=== PATIENT | female | born 1965 | race Caucasian/White ===

== ENCOUNTER 2017-08-14 11:54 | Observation (INO) | payer MEDICARE ==
[2017-08-14 12:45] LABS: Granulocyte Absolute (ANC) 6.22 (1.4-6.9); Hematocrit 43.5 % (35-47); Mean Cell Volume 88.6 fl (78-100); Mean Corpuscular Hemoglobin 28.5 pg (26-32); Mean Corpuscular Hgb Concent. 32.2 g/dl (32-36); Platelet Count 180 K/mm3 (150-450); Red Blood Count 4.91 M/mm3 (4.1-5.4); Red Cell Distribution Width 15.5 % (11.5-14.0); White Blood Count 10.3 K/mm3 (4.0-10.5)
[2017-08-14] MEDS ORDERED: Sodium Chloride 0.9% 1000 ML 1,000 ML IV SCH (12:45)
[2017-08-14 13:01] LABS: ALBUMIN 3.5 g/dL (3.5-5.0); ANION GAP 15.9 MEQ/L (5-15); BILIRUBIN,TOTAL 0.6 mg/dL (0.2-1.3); Calcium 9.7 mg/dL (8.4-10.2); Creatinine 1 1.15 mg/dL (0.52-1.04); Potassium 3.9 mmol/L (3.5-5.1)
--- NOTE | 2017-08-14 13:15 | ERPHSYRPT ---
- History of Present Illness Time Seen by Provider: 08/14/17 12:38 Source: patient, family Exam Limitations: clinical condition Patient Subjective Stated Complaint: pt brought to ed per ems with mother with reports of pt has syncapol episode at [facility]-pt mother reports that pt sat down and then passed out-states that when pt woke up it took her a few min before she was aware mother was there-states that she did not hit her head or fall-no jerking motions or incontent episode noted Triage Nursing Assessment: pt arrived to ed pale warm and dry-able to follow commands-pt stated she could not assist with transfer then sat up to take shirt and bra and put gown on-dark substance noted to hands and arms-wipes off easily- resp easy and nonlabored-pupils responsive Physician History: PATIENT WITH A HISTORY OF CRANIALPHARYNGEAL TUMOR RESECTION AGE 9 AT [facility], HISTORY OF CVA AND TIA'S X 2, HAD A SY[address]OPAL EPISODE AT [facility] TODAY, WHILE SITTING INTO CHAIR, MOTHER MAINTAINED HER AIRWAY WITH CHIN LIFT. DENIES TRAUMA OR INJURY TO FLOOR, SEIZURE ACTIVITY. Witnessed: by family Prior Episodes: single episode today Timing/Duration: today Precipitating Factors: none Context: sitting Loss of Consciousness: prolonged (minutes) Charcter of event(s): collapsed (WHILE SITTING) Allergies/Adverse Reactions: prochlorperazine edisylate [From Compazine] Allergy (Mild, Verified 08/14/17 12: 10) " cant walk" prochlorperazine maleate [From Compazine] Allergy (Mild, Verified 08/14/17 12:10 ) "can't walk" promethazine HCl [From Phenergan] Allergy (Mild, Verified 08/14/17 12:10) " can't walk" Home Medications: Aspirin 81 gm Chew [Baby Aspirin 81 mg Chew] 81 mg PO DAILY 08/14/17 [ History] Clopidogrel Bisulfate 75 mg [PLAVIX 75 MG Tablet] 75 mg PO DAILY 08/14/17 [History] Duloxetine HCl [Cymbalta] 60 mg PO BID 08/14/17 [History] Hydrocodone Bit/Acetaminophen [Hydrocodon-Acetaminophn 10-325] 1 each PO UD 06/02 [History] Levothyroxine Sodium [Synthroid] 25 mcg PO BID 08/14/17 [History] Potassium Chloride 10 Meq Tab* [Klor Con 10 MEQ] 10 meq PO DAILY 08/14/17 [ History] Prednisone 5 mg [Deltasone 5 mg] 5 mg PO DAILY 08/14/17 [History] Spironolactone 25 mg [Aldactone 25 MG] 25 mg PO DAILY 08/14/17 [History] Hx Tetanus, Diphtheria Vaccination/Date Given: No Hx Influenza Vaccination/Date Given: No Hx Pneumococcal Vaccination/Date Given: No Immunizations Up to Date: No - Past Medical History Pertinent Past Medical History: Yes Neurological History: TIA, Other ENT History: Other Cardiac History: No Pertinent History, Deep Vein Thrombosis Respiratory History: Asthma Endocrine Medical History: Adrenal Insufficiency, Hypothyroidism Musculoskeletal History: Fibromyalgia, Osteoporosis GI Medical History: GERD History: Other Psycho-Social History: Anxiety, Depression, Other Female Reproductive Disorders: No Pertinent History Other Medical History: BRAIN BLEED 02-13BRAIN TUMOR WITH SHUNT A CHILD NON MALIGNANT - cranial frengioma, hx " brain bleed" and tia x2. legally blind. - Past Surgical History Past Surgical History: Yes Neuro Surgical History: Brain Shunt, Neurological Surgery Cardiac: No Pertinent History, Vascular Surgery Respiratory: No Pertinent History Gastrointestinal: Appendectomy, Cholecystectomy Genitourinary: No Pertinent History Musculoskeletal: No Pertinent History Female Surgical History: No Pertinent History Other Surgical History: green field filter - Social History Smoking Status: Never smoker Exposure to second hand smoke: No Drug Use: none Patient Lives Alone: No Significant Family History: diabetes - Female History Hx Now: No - Review of Systems Constitutional: No Fever, No Chills Eyes: No Symptoms Ears, Nose, & Throat: No Symptoms Respiratory: No Cough, No Dyspnea Cardiac: No Chest Pain, No Edema, No Syncope Abdominal/Gastrointestinal: No Symptoms, No Abdominal Pain, No Nausea, No Vomiting, No Diarrhea Genitourinary Symptoms: No Symptoms, No Dysuria Musculoskeletal: No Back Pain, No Neck Pain Skin: No Symptoms, No Rash Neurological: Other (SYNCOPE), No Dizziness, No Focal Weakness, No Sensory Changes Psychological: No Symptoms Endocrine: No Symptoms All Other Systems: Reviewed and Negative Physical Exam - Nursing Vital Signs Nursing Vital Signs: Initial Vital Signs Temperature 98.1 F 08/14/17 12:22 Pulse Rate 94 H 08/14/17 12:22 Respiratory Rate 18 08/14/17 12:22 O2 Sat by Pulse Oximetry 96 08/14/17 12:22 Pain Scale Pain Intensity 0 - Physical Exam General Appearance: no apparent distress, alert Eye Exam: bilateral eye: PERRL, EOMI Ears, Nose, Throat Exam: normal ENT inspection, pharynx normal, moist mucous membranes Neck Exam: normal inspection, non-tender, supple, full range of motion Respiratory: normal breath sounds, lungs clear, No chest tenderness, No respiratory distress Cardiovascular: regular rate/rhythm, capillary refill <2 sec, No murmur, No pulse deficit Gastrointestinal: soft, No tenderness, No distention, No mass Back Exam: normal inspection, normal range of motion, No CVA tenderness, No vertebral tenderness Extremity Exam: normal inspection, normal range of motion, pelvis stable, No tenderness Mental Status: alert, oriented x 3, cooperative proof tester Exam: normal speech, PERRL, No facial droop Coordination/Gait: normal finger to nose Motor/Sensory: no motor deficit, no sensory deficit, no pronator drift DTR: bicep (R): 2+, bicep (L): 2+, tricep (R): 2+, tricep (L): 2+, knee (R): 2+ , knee (L): 2+, ankle (R): 2+, ankle (L): 2+ Skin Exam: normal color, warm, dry, No rash SpO2 Interpretation: normal SpO2: 97 Oxygen Delivery: Room Air - Course EKG Interpreted by Me: RATE, Sinus Rhythm, Sinus Tach, NORMAL AXIS - Radiology Exams Chest X-ray Interpretation: Discussed w/ radiologist, No Infiltrates Pelvis X-ray Interpretation: Discussed w/ radiologist, Negative, No Fracture - CT Exams Head CT Interpretation: Discussed w/radiologist, Other (NEW FINDING REMOTE APPEARING LEFT CAUDATE HEAD, AND LEFT BASAL GANGLIA, LACUNAR INFARCTS) Ordered Tests: Active Orders 24 hr Category Date Time Status Up Ad Rowena ROUTINE Activity 08/14/17 15:12 Active Clean Catch Urine Specimen STAT Care 08/14/17 12:31 Active Code Status Order ROUTINE Care 08/14/17 15:10 Active EKG-ER Only STAT Care 08/14/17 12:31 Active IV Insertion STAT Care 08/14/17 12:31 Active Neuro Checks Q4H Care 08/14/17 15:10 Active Oxygen-ED Only NASAL CANNULA 2 lpm Care 08/14/17 12:[address] in Observation ROUTINE Care 08/14/17 15:10 Active Telemetry CONTINUOUS Care 08/14/17 15:11 Active Cardiac Diet Diet 08/14/17 Dinner Active CHEST 1 VIEW (PORTABLE) Stat Exams 08/14/17 12:32 Completed HEAD WITHOUT CONTRAST [CT] Stat Exams 08/14/17 12:32 Completed MRA BRAIN WITHOUT CONTRAST [MRI] Routine Exams 08/14/17 15:10 Ordered PELVIS (1 OR 2 VIEWS) Stat Exams 08/14/17 12:37 Completed CBC W DIFF Stat Lab 08/14/17 12:22 Completed CMP Stat Lab 08/14/17 12:22 Completed MAGNESIUM Stat Lab 08/14/17 12:22 Completed Manual Differential NC Stat Lab 08/14/17 12:22 Completed UA W/RFX UR CULTURE Stat Lab 08/14/17 12:32 Ordered Oxygen NASAL CANNULA 2 lpm RT 08/14/17 15:10 Active Transfer Order Routine Transfer 08/14/17 Ordered Medication Summary Generic Name Dose Route Start Last Admin Trade Name Freq PRN Reason Stop Dose Admin Acetaminophen 650 mg 08/14/17 15:10 Tylenol 325 Mg PO 09/13/17 15:09 Q4H PRN PRN PAIN, FEVER, HEADACHE Hydrocodone Bitart/Acetaminophen 1 tab 08/15/17 10:00 [place] 10/325 Mg Tablet PO 08/20/17 09:59 DAILY DASIA Duloxetine HCl 60 mg 08/14/17 22:00 Cymbalta 30 Mg Capsule PO 09/13/17 21:59 BID DASIA Sodium Chloride 1,000 mls @ 100 mls/hr 08/14/17 12:45 08/14/17 12:57 Sodium Chloride 0.9% 1000 Ml IV 09/13/17 12:44 100 mls/hr .Q10H DASIA Administration Sodium Chloride 1,000 mls @ 50 mls/hr 08/14/17 15:15 Sodium Chloride 0.9% 1000 Ml IV 09/13/17 15:14 .Q20H DASIA Levothyroxine Sodium 25 mcg 08/15/17 10:00 Synthroid 25 Mcg PO 09/14/17 09:59 QAM [facility] Potassium Chloride 10 meq 08/15/17 10:00 Klor Con 10 Meq PO 09/14/17 09:59 DAILY DASIA Prednisone 5 mg 08/15/17 10:00 Deltasone 5 Mg PO 09/14/17 09:59 DAILY DASIA Spironolactone 25 mg 08/15/17 10:00 Aldactone 25 Mg PO 09/14/17 09:59 DAILY [facility] Lab/Rad Data: Laboratory Result [facility] 08/14/17 12:22 08/14/17 12:22 Laboratory Results 08/14/17 08/14/17 08/14/17 Range/Units 12:22 12:22 12:22 WBC 10.3 (4.0-10.5) K/mm3 RBC 4.91 (4.1-5.4) M/mm3 Hgb 14.0 (12.0-16.0) gm/dl Hct 43.5 (35-47) % MCV 88.6 (78-100) fl MCH 28.5 (26-32) pg MCHC 32.2 (32-36) g/dl RDW 15.5 H (11.5-14.0) % Plt Count 180 (150-450) K/mm3 MPV 11.0 H (6-9.5) fl Absolute Granulocytes 6.22 (1.4-6.9) Segmented Neutrophils 64 (36.0-66.0) % Band Neutrophils 1 (0.0-2.0) % Lymphocytes (Manual) 31 (24-44) % Monocytes (Manual) 2 (0.0-12.0) % Eosinophils (Manual) 1 (0.00-3.0) % Basophils (Manual) 1 (0.0-1.0) % Platelet Estimate NORMAL (NORMAL) RBC Morphology NORMAL Sodium 141 (137-145) mmol/L Potassium 3.9 (3.5-5.1) mmol/L Chloride 106 (98-107) mmol/L Carbon Dioxide 23 (22-30) mmol/L Anion Gap 15.9 H (5-15) MEQ/L BUN 20 H (7-17) mg/dL Creatinine 1.15 H (0.52-1.04) mg/dL Estimated GFR 53.3 ML/MIN Glucose 117 H (74-106) mg/dL Calcium 9.7 (8.4-10.2) mg/dL Magnesium 2.0 (1.6-2.3) mg/dL Total Bilirubin 0.60 (0.2-1.3) mg/dL AST 42 H (14-36) U/L ALT 41 H (0-35) U/L Alkaline Phosphatase 94 (38-126) U/L Serum Total Protein 7.0 (6.3-8.2) g/dL Albumin 3.5 (3.5-5.0) g/dL - Progress Discussed with : Austin (DISCUSSED WITH DR ORTEGA FOR OBSERVATION) - Departure Time of Disposition: 15:15 Departure Disposition: Observation Clinical Impression: SYNCOPE, REMOTE CVA Condition: Stable Critical Care Time: No Referrals: CASSIA PIERCE [Primary Care Provider] -
--- NOTE | 2017-08-14 13:27 | XRAY ---
Indication: Syncope. History TIA and CVA. Double contiguous axial images obtained through the head without contrast. Comparison: August 25, 2012. Stable distended 3rd and both lateral ventricles with right-sided ventricular shunt catheter in situ. Stable left basal ganglia calcifications. New remote-appearing left caudate head and left basal ganglia lacunar infarcts. No acute intracranial hemorrhage, abnormal extra-axial fluid collection, or mass effect. Fourth ventricle is midline. Again empty sella with benign chunky calcifications. Bony calvarium intact again with right temporal craniotomy. Visualized paranasal sinuses and mastoid air cells are clear. Impression: 1. New finding remote appearing left caudate head and left basal ganglia lacunar infarcts. 2. Stable distended 3rd and lateral ventricles with right ventricular shunt catheter in situ. 3. Again empty sella with benign chunky calcifications. 4. No acute intracranial abnormalities. CTDI 71.05
--- NOTE | 2017-08-14 13:29 | XRAY ---
Indication: Bilateral hip pain following fall 2 weeks ago. Comparison: None Single AP pelvis demonstrates left peritoneal shunt tubing coiled midline at the level of the pelvic inlet. No other bony, articular, or soft tissue abnormalities.
--- NOTE | 2017-08-14 13:29 | XRAY ---
Indication: Dyspnea. Comparison: August 25, 2012. Portable apical lordotic chest now markedly underinflated but remains clear again with right shunt tubing and cardiac pacer lead. Heart is not enlarged and bony thorax intact. No new/acute findings.
[2017-08-14 14:02] LABS: BAND 1 % (0.0-2.0); Basophil 1 % (0.0-1.0); Eosinophil 1 % (0.00-3.0); Lymphocytes 31 % (24-44); Monocyte 2 % (0.0-12.0); Neutrophils 64 % (36.0-66.0); Platelet Estimate NORMAL (NORMAL); Total Cells Counted 100
[2017-08-14] MEDS: Sodium Chloride 0.9% 1000 ML 1,000 ML IV SCH (16:25)
[2017-08-14] MEDS ORDERED: MEDICATION INTERVENTION PO SCH (17:30)
[2017-08-14] MEDS ORDERED: Norco 10/325 MG Tablet ONE (20:00)
[2017-08-14] MEDS: Cymbalta 30 MG Capsule PO SCH (21:42)
[2017-08-14] MEDS: Glucophage 500 MG PO SCH (21:43)
[2017-08-14] MEDS: Seroquel 25 MG PO SCH (21:43)
[2017-08-14] MEDS: PLAVIX 75 MG Tablet PO SCH (21:43)
[2017-08-14] MEDS: XANAX 1 MG PO SCH (21:44)
[2017-08-14] MEDS ORDERED: NON-FORMULARY ITEM (Quetiapine Fumarate [Seroquel] 50 MG) PO SCH (22:00)
[2017-08-15] MEDS ORDERED: Zofran 4 MG/2 ML VIAL IV PRN (08:15)
--- NOTE | 2017-08-15 08:23 | PCM.HP ---
History of Present Illness - Chief Complaint Chief Complaint: CVA. History of Present Illness: is a 51 year old female with a longstanding medical history with no local physician. 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 She had an episode yesterday where she passed out at [facility], there was no report of seizure activity. She reports she felt tired after the incident, has had no further issues since admission. Denies chest pain, shortness of breath or other complaints. Of note she has had multiple MRI's done since her 3D DESIGNER shunt has been placed per her report. She sees a neurologist but unsure of the name, staff to try and obtain records. - Review of Systems Constitutional: No Fever, No Chills Respiratory: No Cough, No Short Of Breath Cardiac: Syncope Abdominal/Gastrointestinal: No Abdominal Pain, No Nausea, No Vomiting, No Diarrhea Genitourinary Symptoms: No Dysuria Neurological: No Dizziness, No Focal Weakness, No Sensory Changes Psychological: No Symptoms All Other Systems: Reviewed and Negative Medications & Allergies Home Medications: Home Medication List Alprazolam [Xanax] 2 tab PO HS 08/14/17 [History Confirmed 08/14/17] Aspirin 81 gm Chew [Baby Aspirin 81 mg Chew] 81 mg PO DAILY 08/14/17 [ History Confirmed 08/14/17] Clopidogrel Bisulfate 75 mg [PLAVIX 75 MG Tablet] 75 mg PO HS 08/14/17 [ History Confirmed 08/14/17] Cortisone Acetate [Cortisone] 7 mg PO DAILY 08/14/17 [History Confirmed 08/14/17 ] Desmopressin Acetate 0.2 mg PO DAILY 08/14/17 [History Confirmed 08/14/17] Duloxetine HCl [Cymbalta] 2 cap PO BID 08/14/17 [History Confirmed 08/14/17] Hydrocodone Bit/Acetaminophen [Hydrocodon-Acetaminophn 10-325] 1 each PO Q6HPRN PRN 08/14/17 [History Confirmed 08/14/17] Levothyroxine Sodium [Synthroid] 175 mcg PO DAILY 08/14/17 [History Confirmed ] Metformin HCl 500 mg [Glucophage 500 MG] 500 mg PO HS 08/14/17 [History Confirmed 08/14/17] Potassium Chloride 10 Meq Tab* [Klor Con 10 MEQ] 20 meq PO DAILY 08/14/17 [ History Confirmed 08/14/17] Prednisone 5 mg [Deltasone 5 mg] 1.5 tab PO DAILY 08/14/17 [History Confirmed 08/14/17] Quetiapine Fumarate [Seroquel] 50 mg PO HS 08/14/17 [History Confirmed 08/14/17] Spironolactone 25 mg [Aldactone 25 MG] 50 mg PO DAILY 08/14/17 [History Confirmed 08/14/17] Allergies/Adverse Reactions: Allergies Allergy/AdvReac Type Severity Reaction Status Date / Time prochlorperazine edisylate Allergy Mild " cant Verified 08/14/17 12:10 [From Compazine] walk" prochlorperazine maleate Allergy Mild "can't Verified 08/14/17 12:10 [From Compazine] walk" promethazine HCl Allergy Mild " can't Verified 08/14/17 12:10 [From Phenergan] walk" - Past Medical History Past Medical History: Yes Neurological History: TIA, Other ENT History: Other Cardiac History: No Pertinent History, Deep Vein Thrombosis Respiratory History: Asthma Endocrine Medical History: Adrenal Insufficiency, Diabetes Type II, Hypothyroidism Musculoskelatal History: Fibromyalgia, Osteoporosis GI Medical History: GERD History: Other Pyscho-Social History: Anxiety, Depression, Other Reproductive Disorders: No Pertinent History Comment: BRAIN BLEED 02-13BRAIN TUMOR WITH SHUNT A CHILD NON MALIGNANT - cranial frengioma, hx " brain bleed" and tia x2. legally blind. - Female History Are you now?: No - Past Surgical History Past Surgical History: Yes Neuro Surgical History: Brain Shunt, Neurological Surgery Cardiac History: No Pertinent History, Vascular Surgery Respiratory Surgery: No Pertinent History GI Surgical History: Appendectomy, Cholecystectomy Genitourinary Surgical Hx: No Pertinent History Musculskeletal Surgical Hx: No Pertinent History Female Surgical History: No Pertinent History Other Surgical History: green field filter - Social History Smoking Status: Never smoker Exposure to second hand smoke: No Alcohol: None Drug Use: none Significant Family History: diabetes - Physical Exam Vital Signs: Vital Signs - 24 hr Temp Pulse Resp BP Pulse Ox 08/15/17 06:39 99.6 F 99 H 16 140/64 94 L 08/15/17 04:00 99.4 F 94 H 20 121/80 93 L 08/15/17 00:00 98.9 F 91 H 20 119/73 94 L 08/14/17 20:00 99.4 F 20 L 20 129/65 94 L 08/14/17 17:31 98.1 F 97 H 18 128/82 98 08/14/17 16:00 98.1 F 97 H 18 128/82 98 08/14/17 15:39 98 08/14/17 15:19 97 08/14/17 13:01 91 H 18 97 08/14/17 12:22 98.1 F 94 H 18 96 Oxygen-Last 24 hours O2 Percentage 2 Liters = 28% General Appearance: no apparent distress, obese Neurologic Exam: alert, oriented x 3 Eye Exam: PERRL/EOMI, eyes nml inspection Neck Exam: normal inspection, non-tender, supple, full range of motion Respiratory Exam: normal breath sounds, lungs clear, No respiratory distress Cardiovascular Exam: regular rate/rhythm, normal heart sounds, normal peripheral pulses Gastrointestinal/Abdomen Exam: soft, normal bowel sounds, No tenderness, No mass Extremity Exam: normal inspection, normal range of motion, pelvis stable Skin Exam: normal color, warm, dry, No rash Results - Radiology Impressions Radiology Exams & Impressions: Radiology Procedures Category Date Time Status MRA BRAIN WITHOUT CONTRAST [MRI] Routine Exams 08/15/17 08:00 Ordered Assessment/Plan (1) Syncope Current Visit: Yes Status: Acute Assessment & Plan: will get MRI brain when ok with radiology and records show can be done safely. will check echo and carotid dopplers in the meantime Code(s): R55 - SYNCOPE AND COLLAPSE (2) History of CVA (cerebrovascular accident) Current Visit: Yes Status: Acute Code(s): Z86.73 - PRSNL HX OF TIA (TIA), AND CEREB INFRC W/O RESID DEFICITS
[2017-08-15] MEDS: Cymbalta 30 MG Capsule PO SCH ×2 (08:58→21:02)
[2017-08-15] MEDS ORDERED: DELTASONE 5 MG PO SCH (10:00)
[2017-08-15] MEDS ORDERED: Norco 10/325 MG Tablet PO PRN (10:00)
[2017-08-15] MEDS ORDERED: SYNTHROID 75 MCG PO SCH (10:00)
[2017-08-15] MEDS ORDERED: DESMOPRESSIN ACETATE 0.2 MG PO SCH (10:00)
[2017-08-15] MEDS ORDERED: Aldactone 25 MG PO SCH (10:00)
[2017-08-15] MEDS ORDERED: SYNTHROID 25 MCG PO SCH (10:00)
[2017-08-15] MEDS ORDERED: CORTISONE ACETATE PO SCH (10:00)
[2017-08-15] MEDS ORDERED: Klor Con 10 MEQ PO SCH (10:00)
[2017-08-15] MEDS ORDERED: NON-FORMULARY ITEM (Levothyroxine Sodium [Synthroid] 175 MCG) PO SCH (10:00)
[2017-08-15] MEDS ORDERED: ECOTRIN 81 MG PO SCH (10:00)
[2017-08-15] MEDS ORDERED: SYNTHROID 100 MCG PO SCH (10:00)
[2017-08-15] MEDS ORDERED: BABY ASPIRIN 81 MG CHEW PO SCH (10:00)
--- NOTE | 2017-08-15 10:23 | XRAY ---
Indication: Syncope. History TIAs. Two-dimensional ultrasound and color Doppler imaging of the carotid arteries of the neck performed. Comparison: None Examination of the right carotid circulation negative for focal arteriosclerotic plaquing, critical stenosis, or obstruction. PSV of the CCA is 79 cm/s. PSV of the ICA is 95 cm/s. ICA/CCA ratio is 1.2. Normal antegrade vertebral artery flow. Examination of the left carotid circulation also widely patent. PSV of the CCA is 67 cm/s. PSV of the ICA is 76 cm/s. ICA/CCA ratio is 1.1. Normal antegrade vertebral artery flow. Impression: Left and right carotid sonogram negative for critical stenosis/obstruction. Velocity measurements and ratios are also negative for hemodynamically significant flow-limiting stenosis.
[2017-08-15 10:27] LABS: Appearance CLEAR (CLEAR); Bilirubin NEGATIVE (NEGATIVE); Blood 50 Ery/ul (0-5); Glucose NEGATIVE (NEGATIVE); Ketones TRACE (NEGATIVE); Leukocyte Esterase 2+ (NEGATIVE); Nitrite NEGATIVE (NEGATIVE); Protein,Urine Dip NEGATIVE (Negative); Urobilinogen NORMAL mg/dL (0-1)
[2017-08-15 11:39] LABS: Bacteria FEW /HPF (NEGATIVE); Epithelial Cells RARE /HPF (FEW)
[2017-08-15] MEDS: Sodium Chloride 0.9% 1000 ML 1,000 ML IV SCH (15:49)
[2017-08-15] MEDS ORDERED: ZOFRAN ODT 4 MG PO PRN (16:36)
[2017-08-15] MEDS ORDERED: NON-FORMULARY ITEM PO SCH ×2 (17:00→22:00)
[2017-08-15] MEDS: TYLENOL 325 MG PO PRN (19:37)
[2017-08-15] MEDS: Seroquel 25 MG PO SCH (21:02)
[2017-08-15] MEDS: XANAX 1 MG PO SCH (21:02)
[2017-08-15] MEDS: PLAVIX 75 MG Tablet PO SCH (21:02)
[2017-08-15] MEDS: Glucophage 500 MG PO SCH (21:02)
[2017-08-16] MEDS: TYLENOL 325 MG PO PRN (00:48)
[2017-08-16 05:32] LABS: Granulocyte Absolute (ANC) 5.28 (1.4-6.9); Hematocrit 44.6 % (35-47); Hemoglobin 13.8 gm/dl (12.0-16.0); Mean Cell Volume 93.3 fl (78-100); Mean Corpuscular Hemoglobin 28.9 pg (26-32); Mean Corpuscular Hgb Concent. 30.9 g/dl (32-36); Platelet Count 177 K/mm3 (150-450); Red Blood Count 4.78 M/mm3 (4.1-5.4); Red Cell Distribution Width 16.2 % (11.5-14.0); White Blood Count 8.5 K/mm3 (4.0-10.5)
[2017-08-16 05:51] LABS: ALBUMIN 3.2 g/dL (3.5-5.0); ANION GAP 15.1 MEQ/L (5-15); BILIRUBIN,TOTAL 0.2 mg/dL (0.2-1.3); Calcium 9.7 mg/dL (8.4-10.2); Creatinine 1 1.25 mg/dL (0.52-1.04); Potassium 4.2 mmol/L (3.5-5.1); Total Protein 6.3 g/dL (6.3-8.2)
[2017-08-16 07:53] LABS: Eosinophil 1 % (0.00-3.0); Lymphocytes 25 % (24-44); Monocyte 5 % (0.0-12.0); Neutrophils 69 % (36.0-66.0); Total Cells Counted 100
[2017-08-16 07:54] LABS: ANISOCYTOSIS 1+; Platelet Estimate NORMAL (NORMAL)
--- NOTE | 2017-08-16 08:14 | PCM.DS ---
Discharge Summary Date of Admission: 08/14/17 15:38 Admitting Physician: LORRIE ORTEGA Primary Care Provider: CASSIA PIERCE Allergies Allergies prochlorperazine edisylate [From Compazine] Allergy (Mild, Verified 08/14/17 12: 10) " cant walk" prochlorperazine maleate [From Compazine] Allergy (Mild, Verified 08/14/17 12:10 ) "can't walk" promethazine HCl [From Phenergan] Allergy (Mild, Verified 08/14/17 12:10) " can't walk" Hospital Summary - Hospital Course Hospital Course: patient was admitted with syncopal episode, witnessed. no other complaints since admission. has had no events, carotid dopplers are negative and EEG wnl - Vitals & Intake/Output Vital Signs: Vital Signs Temperature 99.6 F 08/16/17 04:00 Pulse Rate 113 H 08/16/17 04:00 Respiratory Rate 18 08/16/17 04:00 Blood Pressure 114/80 08/16/17 04:00 O2 Sat by Pulse Oximetry 94 L 08/16/17 04:00 Oxygen-Last Documented O2 Percentage 2 Liters = 28% Intake & Output: Intake & Output 08/13/17 08/14/17 08/15/17 08/16/17 11:59 11:59 11:59 11:59 Intake Total 1472 680 Output Total 300 2700 Balance 1172 -2020 Weight 94.7 kg - Lab Result Diagrams: 08/16/17 05:10 08/16/17 05:10 Lab Results-Last 24 Hrs: Lab Results-Last 24 Hours 08/15/17 08/16/17 08/16/17 Range/Units 09:30 05:10 05:10 WBC 8.5 (4.0-10.5) K/mm3 RBC 4.78 (4.1-5.4) M/mm3 Hgb 13.8 (12.0-16.0) gm/dl Hct 44.6 (35-47) % MCV 93.3 (78-100) fl MCH 28.9 (26-32) pg MCHC 30.9 L (32-36) g/dl RDW 16.2 H (11.5-14.0) % Plt Count 177 (150-450) K/mm3 MPV 11.0 H (6-9.5) fl Absolute Granulocytes 5.28 (1.4-6.9) Segmented Neutrophils 69 H (36.0-66.0) % Lymphocytes (Manual) 25 (24-44) % Monocytes (Manual) 5 (0.0-12.0) % Eosinophils (Manual) 1 (0.00-3.0) % Platelet Estimate NORMAL (NORMAL) RBC Morphology ABNORMAL Anisocytosis 1+ Sodium 157 H* (137-145) mmol/L Potassium 4.2 (3.5-5.1) mmol/L Chloride 117 H (98-107) mmol/L Carbon Dioxide 29 (22-30) mmol/L Anion Gap 15.1 H (5-15) MEQ/L BUN 18 H (7-17) mg/dL Creatinine 1.25 H (0.52-1.04) mg/dL Estimated GFR 48.4 ML/MIN Glucose 112 H (74-106) mg/dL Calcium 9.7 (8.4-10.2) mg/dL Total Bilirubin 0.20 (0.2-1.3) mg/dL AST 31 (14-36) U/L ALT 52 H (0-35) U/L Alkaline Phosphatase 100 (38-126) U/L Serum Total Protein 6.3 (6.3-8.2) g/dL Albumin 3.2 L (3.5-5.0) g/dL Ur Collection Type CLEAN CATCH Urine Color YELLOW (YELLOW) Urine Appearance CLEAR (CLEAR) Urine pH 5.0 (5-6) Ur Specific [place] 1.020 (1.005-1.025) Urine Protein NEGATIVE (Negative) Urine Ketones TRACE (NEGATIVE) Urine Blood 50 (0-5) [place]/ul Urine Nitrite NEGATIVE (NEGATIVE) Urine Bilirubin NEGATIVE (NEGATIVE) Urine Urobilinogen NORMAL (0-1) mg/dL Ur Leukocyte Esterase 2+ (NEGATIVE) Urine Microscopic RBC 2-5 (0-2) /HPF Urine Microscopic WBC 5-10 (0-5) /HPF Ur Epithelial Cells RARE (FEW) /HPF Urine Bacteria FEW (NEGATIVE) /HPF Urine Culture Reflexed YES (NO) Urine Glucose NEGATIVE (NEGATIVE) mg/dL Specimen Received 08/15/17 0930 Micro Results-Entire Visit: Microbiology 08/15/17 09:30 Urine Culture - Preliminary Clean Catch Midstream <10K NORMAL SKIN BLADE PROBABLE SKIN CONTAMINANT - Radiology Exams Ordered Rad Exams-Entire Visit: Radiology Procedures Category Date Time Status CAROTID BILATERAL [US] Urgent Exams 08/15/17 10:00 Completed ECHO W/2D AND DOPPLER [US] Routine Exams 08/15/17 10:00 Taken - Procedures and Test Procedures and Tests throughout Hospitalization: Therapy Orders & Screens 08/14/17 15:10 Oxygen NASAL CANNULA 2 lpm Comment: 08/15/17 08:24 EEG 41-60 Minutes (Normal) ONCE Comment: Reason For Exam: Diagnosis: CVA. Discharge Exam General Appearance: no apparent distress, alert, obese Skin Exam: normal color, warm, dry Respiratory Exam: normal breath sounds, lungs clear, No respiratory distress Cardiovascular Exam: regular rate/rhythm, normal heart sounds Gastrointestinal/Abdomen Exam: soft, No tenderness, No mass Extremity Exam: normal inspection, normal range of motion Final Diagnosis/Problem List - Final Discharge Diagnosis/Problem (1) Syncope Current Visit: Yes Status: Acute Assessment & Plan: workup negative, on asa/plavix at home. no change in current regimen, seems to have no new neurological deficits at this time. (2) History of CVA (cerebrovascular accident) Current Visit: Yes Status: Acute - Discharge Disposition: Home, Self-Care Condition: Stable Prescriptions: Continue Clopidogrel Bisulfate 75 mg [PLAVIX 75 MG Tablet] 75 mg PO HS Aspirin 81 gm Chew [Baby Aspirin 81 mg Chew] 81 mg PO DAILY Prednisone 5 mg [Deltasone 5 mg] 1.5 tab PO DAILY Duloxetine HCl [Cymbalta] 2 cap PO BID Spironolactone 25 mg [Aldactone 25 MG] 50 mg PO DAILY Potassium Chloride 10 Meq Tab* [Klor Con 10 MEQ] 20 meq PO DAILY Hydrocodone Bit/Acetaminophen [Hydrocodon-Acetaminophn 10-325] 1 each PO Q6HPRN PRN PRN Reason: Pain Cortisone Acetate [Cortisone] 7 mg PO DAILY Quetiapine Fumarate [Seroquel] 50 mg PO HS Metformin HCl 500 mg [Glucophage 500 MG] 500 mg PO HS Desmopressin Acetate 0.2 mg PO DAILY Alprazolam [Xanax] 2 tab PO HS Levothyroxine Sodium [Synthroid] 175 mcg PO DAILY Follow up with: CASSIA PIERCE [Primary Care Provider] - 1 Week
[2017-08-16 08:38] VITALS: BP 149/66; PULSE 110; O2SAT 96
== END 2017-08-16 08:56 | disposition home or self-care (01) ==
LOC: ED 11:54 → MED SURG 15:38
PROVIDERS: ADMIT Family Medicine; ATTEND Family Medicine
DX: R55 Syncope and collapse (principal); Z86.73 Personal history of transient ischemic attack (TIA), and cerebral infarction without residual deficits; Z86.718 Personal history of other venous thrombosis and embolism; J45.909 Unspecified asthma, uncomplicated; E11.9 Type 2 diabetes mellitus without complications; Z79.4 Long term (current) use of insulin; E03.9 Hypothyroidism, unspecified; K21.9 Gastro-esophageal reflux disease without esophagitis; M79.7 Fibromyalgia; M81.0 Age-related osteoporosis without current pathological fracture; F41.8 Other specified anxiety disorders
CPT/HCPCS: 36415; 70450; 71045; 72170; 80053; 81000; 83735; 85025; 87086; 93005; 93268; 93306; 93880; 94760; 95812; 96360; 99285; J2405; A9270-GY; G0378